=== PATIENT | male | born 1985 | race Caucasian/White ===

== ENCOUNTER 2016-02-21 11:06 | Emergency (ER) | payer OTHER ==
[2016-02-21 11:13] VITALS: BP 136/85
--- NOTE | 2016-02-21 11:17 | ER Document Report ---
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 Needs consult and has insomnia TRAVEL OUTSIDE OF THE [place] IN LAST 30 DAYS: No - HPI Onset: Other - 2014 Onset/Duration: Persistent Quality of pain: Achy, Other - numb and sore Pain Level: 2 Associated Symptoms: Other - insominia Exacerbated by: Movement - use Relieved by: Denies Similar symptoms previously: Yes Recently seen / treated by doctor: No - Related Data Smoking: Non-smoker Frequency of alcohol use: Social Drug Abuse: None Past Medical History Past Surgical History: Reports: Hx Cholecystectomy - Immunizations Hx Diphtheria, Pertussis, Tetanus Vaccination: Yes Physical Exam - Vital signs Vitals: Temp Pulse Resp BP Pulse Ox 97.8 F 90 16 136/85 H 99 02/21/16 11:12 02/21/16 11:12 02/21/16 11:12 02/21/16 11:12 02/21/16 11:12 Course - Vital Signs Vital signs: Temp Pulse Resp BP Pulse Ox 97.8 F 90 16 136/85 H 99 02/21/16 11:12 02/21/16 11:12 02/21/16 11:12 02/21/16 11:12 02/21/16 11:12
--- NOTE | 2016-02-21 11:59 | ER Document Report ---
HPI - HPI Patient complains to provider of: bilateral wrist pain, insomnia Onset: Other - Wrist pain since 2014, insomnia past week Onset/Duration: Persistent Quality of pain: Achy Pain Level: 3 Context: Patient reports previous history of carpal tunnel and suspects a flare up of the same today. 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 Associated Symptoms: Other - Insomnia, bilateral wrist pain Exacerbated by: Movement Relieved by: Denies Similar symptoms previously: Yes Recently seen / treated by doctor: No - ROS ROS below otherwise negative: Yes Notes: Patient complains of insomnia due to shift work Systems Reviewed and Negative: Yes All other systems reviewed and negative - CONSTITUTIONAL Constitutional: DENIES: Fever, Chills - NEURO Neurology: DENIES: Headache, Weakness - CARDIOVASCULAR Cardiovascular: DENIES: Chest pain - MUSCULOSKELETAL Musculoskeletal: REPORTS: Extremity pain - Bilateral wrist. 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 IN LAST 30 DAYS: No - HEENT HEENT: Atraumatic, Normocephalic - NECK Neck: Normal Inspection, Supple - RESPIRATORY Respiratory: No Respiratory Distress O2 Sat by Pulse Oximetry: 99 - CARDIOVASCULAR Cardiovascular: Regular Rate, Regular Rhythm Pulses: Normal: Radial - BACK Back: Normal Inspection - MUSCULOSKELETAL/EXTREMETIES Musculoskeletal/Extremeties: MAEW, Tender - Mild tenderness to bilateral wrist area, no edema, positive Tinel sign, No Edema - NEURO Level of Consciousness: Awake, Alert, Appropriate Motor/Sensory: No Motor Deficit, No Sensory Deficit - DERM Integumentary: Warm, Dry, No Rash Course - Re-evaluation Re-evalutation: 02/21/16 11:56 Patient without any suicidal or homicidal ideation. 02/21/16 19:05 Patient reports that he has his cockup wrist splints at home that he uses periodically - Vital Signs Vital signs: Temp Pulse Resp BP Pulse Ox 97.8 F 90 16 136/85 H 99 02/21/16 11:12 02/21/16 11:12 02/21/16 11:12 02/21/16 11:12 02/21/16 11:12 Discharge - Discharge Clinical Impression: Shift work sleep disorder, Hx of carpal tunnel syndrome Insomnia Qualifiers: Insomnia type: unspecified Qualified Code(s): G47.00 - Insomnia, unspecified Condition: Stable Disposition: HOME, SELF-CARE Instructions: Insomnia ([facility]), Carpal Tunnel Syndrome ([facility]) Additional Instructions: Return immediately for any new or worsening symptoms Followup with your primary care provider, call tomorrow to make a followup appointment Use your wrist splint that you have at home to help with your carpal tunnel syndrome Follow-up with orthopedic doctor to further manage your carpal tunnel syndrome Prescriptions: Hydroxyzine HCl [Atarax 25 mg Tablet] 2 tab PO QHS #15 tablet Naproxen [Naprosyn 250 Nmg Tablet] 1 tab PO BID #14 tablet Referrals: [facility] [Provider Group] - Follow up as needed [facility] [Provider Group] - Follow up as needed [facility] [Provider Group] - Follow up as needed
== END 2016-02-21 12:06 | disposition home or self-care (01) ==
LOC: ER 11:06
DX: G47.00 Insomnia, unspecified (principal); G47.8 Other sleep disorders; G56.03 Carpal tunnel syndrome, bilateral upper limbs
CPT/HCPCS: 99283

== ENCOUNTER 2016-09-09 15:04 | Day surgery (SDC) | payer BC ==
[~2016-09-09 15:04] MED LIST: EPINEPHRINE INJ 1 MG/10 ML DISP.SYRIN ONE; FLUMAZENIL INJ 0.5 MG/5 ML VIAL IV ONE; GLUCAGON,HUMAN RECOMB 1 MG INJ ONE; NALOXONE HCL INJ/PF 0.4 MG/1 ML SDV ONE
[2016-09-09] MEDS: MIDAZOLAM 2 MG/2 ML INJ ONE ×3 (15:40→16:03)
[2016-09-09] MEDS: FENTANYL CITRATE INJ/PF 100 MCG/2 ML AMPUL ONE ×2 (15:42→16:00)
--- NOTE | 2016-09-09 16:23 | Operative Report ---
Operative Report DATE OF SURGERY: 09/09/16 Operative Report: Pre-op diagnosis: Common bile duct stent in situ for 3 years with recurrent abdominal pain Post-op diagnosis: 1. Common bile duct stent status post removal 2. Common bile duct stones and large amount of sludge Surgery: ERCP with sphincterotomy and balloon stone and sludge extraction Medications: Versed 5mg Fentanyl 150mcg IV push Tissue removed: None Procedure: After informed consent obtained from patient, the throat was sprayed with Hurricane and conscious sedation was achieved. The ERCP endoscope was then inserted into the esophagus blindly and advanced into the stomach. The duodenum was entered and the ampulla was identified. An old plastic stent was identified and this was removed using the polypectomy snare. It does not appear patient had any previous sphincterotomy. Cholangiogram was obtained and this showed multiple filling defects in a slightly dilated biliary tree. A good sized sphincterotomy was then performed using the endocut mode. The catheter was removed over the guidewire before a 9-12 mm balloon catheter was inserted. The balloon was inflated to 12 mm in the proximal common bile duct and pulled down the duct. Large amount of sludge and a few stones were extracted. The duct was swept two more time. A balloon occlusion cholangiogram was normal. The pancreatic duct was intentionally not cannulated. Patient tolerated procedure well. Findings Common bile duct: Mildly dilated with multiple stones and large amount of sludge. An old stent was removed Intrahepatic ducts: Mildly dilated Pancreatic duct: Not cannulated Plan: Follow-up LFTs as outpatient OPERATION: .
--- NOTE | 2016-09-09 16:55 | RADIOLOGY REPORT (SQ) ---
EXAM DESCRIPTION: ENDO CATH/BILIARY DUCT COMPLETED DATE/TIME: 09/09/2016 4:40 pm REASON FOR STUDY: ERCP R94.5 ABNORMAL RESULTS OF LIVER FUNCTION STUDIES COMPARISON: None. FLUOROSCOPY TIME: 3.7 minutes. 6 images saved to PACS. TECHNIQUE: Intra-operative images acquired during surgical procedure to evaluate progress. NUMBER OF IMAGES: 6 images. LIMITATIONS: None. FINDINGS: Images acquired during ERCP with contrast filling of the biliary system. IMPRESSION: IMAGE(S) OBTAINED DURING PROCEDURE. COMMENT: Quality ID [id number]: Final reports for procedures using fluoroscopy that document radiation exp osure indices, or exposure time and number of fluorographic images (if radiation exposure indices are not available) Please consult full operative report of the attending physician for description of the procedure. TECHNICAL DOCUMENTATION: JOB ID: [id number] [employer]- All Rights Reserved
[2016-09-09 17:23] VITALS: BP 111/68
== END 2016-09-09 17:15 | disposition home or self-care (01) ==
LOC: END 15:04 → EDBD 15:45 → MERGE 15:45 → END 17:15
PROVIDERS: ATTEND Internal Medicine Gastroenterology
PROC: 0F798ZZ Dilation of Common Bile Duct, Via Natural or Artificial Opening Endoscopic (ICD-10-PCS; principal; 2016-09-09 15:45)
PROC: 0FC98ZZ Extirpation of Matter from Common Bile Duct, Via Natural or Artificial Opening Endoscopic (ICD-10-PCS; 2016-09-09 15:45)
PROC: 0FPB8DZ Removal of Intraluminal Device from Hepatobiliary Duct, Via Natural or Artificial Opening Endoscopic (ICD-10-PCS; 2016-09-09 15:45)
DX: K80.50 Calculus of bile duct without cholangitis or cholecystitis without obstruction (principal); K83.8 Other specified diseases of biliary tract; Z46.59 Encounter for fitting and adjustment of other gastrointestinal appliance and device
CPT/HCPCS: 43275; 43264; 43262; 74328; J2250; J3010; J0171; J1610; J2310; J3490

== ENCOUNTER → 2016-11-01 | Outpatient (CLI) | payer BC | LOC: OD 08:38 | PROVIDERS: ATTEND Physician Assistant | DX: R20.2 Paresthesia of skin (principal); G56.01 Carpal tunnel syndrome, right upper limb | CPT/HCPCS: 36415; 84443 ==

== ENCOUNTER 2017-05-21 09:53 | Emergency (ER) | payer BC ==
[2017-05-21 09:58] VITALS: BP 150/77
[2017-05-21] MEDS ORDERED: KETOROLAC TROMETHAMINE 60 MG/2 ML SDV IM ONE (10:45)
[2017-05-21] MEDS ORDERED: DIAZEPAM 5 MG TABLET PO ONE (10:45)
--- NOTE | 2017-05-21 12:07 | RADIOLOGY REPORT (SQ) ---
EXAM DESCRIPTION: CERV SP 3 VIEW OR LESS COMPLETED DATE/TIME: 05/21/2017 11:09 am REASON FOR STUDY: limited rom neck, pain COMPARISON: None. NUMBER OF VIEWS: Three views. TECHNIQUE: AP, lateral and odontoid radiographic images acquired of the cervical spine. LIMITATIONS: None. FINDINGS: MINERALIZATION: Osteopenic ALIGNMENT: Straightening of cervical lordosis likely due to muscle spasm. Normal alignment of the C5 through T2 anterior vertebral bodies on swimmer view. VERTEBRAE: Vertebral bodies of normal height. DISCS: Mild disc space loss of height at C4-5 and C5-6 HARDWARE: None in the spine. SOFT TISSUES: No masses or calcifications. Lung apices clear. OTHER: No other significant finding. IMPRESSION: Straightening of cervical lordosis likely due to muscle spasm. TECHNICAL DOCUMENTATION: JOB ID: [id number] [employer]- All Rights Reserved Reading location - IP/workstation name: [email or web address]
--- NOTE | 2017-05-21 12:22 | ER Document Report ---
ED Neck/Back Problem - General Chief Complaint: Stiff Neck Stated Complaint: BACK PAIN Time Seen by Provider: 05/21/17 10:32 Mode of Arrival: Ambulatory Information source: Patient Notes: Patient is a 32-year-old male who presents to the ER today for bilateral neck pain, worse on the right side, inability to turn his head completely without pain from side to side that started yesterday. Patient denies any injury. He does state that it radiates up the back of his head and he does have a history of migraines. Patient denies any fever, chills, cough, vomiting, diarrhea, blurred vision, numbness or tingling anywhere, weakness anywhere. TRAVEL OUTSIDE OF THE [place] IN LAST 30 DAYS: No - Related Data Allergies/Adverse Reactions: No Known Allergies Allergy (Verified 05/21/17 09:54) Past Medical History - General Information source: Patient - Social History Smoking Status: Never Smoker Chew tobacco use (# tins/day): No Frequency of alcohol use: Occasional Drug Abuse: None Family History: Reviewed & Not Pertinent Patient has suicidal ideation: No Patient has homicidal ideation: No - Past Medical History Cardiac Medical History: Denies: Hx Coronary Artery Disease, Hx Heart Attack, Hx Hypertension Pulmonary Medical History: Denies: Hx Asthma, Hx Bronchitis, Hx COPD, Hx Pneumonia Neurological Medical History: Reports: Hx Migraine. Denies: Hx Cerebrovascular Accident, Hx Seizures Renal/ Medical History: Denies: Hx Peritoneal Dialysis Musculoskeltal Medical History: Denies Hx Arthritis Past Surgical History: Reports: Hx Cholecystectomy - Immunizations Hx Diphtheria, Pertussis, Tetanus Vaccination: Yes Review of Systems - Review of Systems Constitutional: No symptoms reported EENT: No symptoms reported Cardiovascular: No symptoms reported Respiratory: No symptoms reported Gastrointestinal: No symptoms reported Genitourinary: No symptoms reported Male Genitourinary: No symptoms reported Musculoskeletal: See HPI Skin: No symptoms reported Hematologic/Lymphatic: No symptoms reported Neurological/Psychological: See HPI Physical Exam - Vital signs Vitals: Temp Pulse Resp BP Pulse Ox 99.7 F 95 15 150/77 H 99 05/21/17 09:57 05/21/17 09:57 05/21/17 09:57 05/21/17 09:57 05/21/17 09:57 - Notes Notes: PHYSICAL EXAMINATION: GENERAL: Well-appearing and in no acute distress. HEAD: Atraumatic, normocephalic. EYES: Pupils equal round and reactive to light, extraocular movements intact, sclera anicteric, conjunctiva are normal. ENT: ear canals without erythema or foreign body, TMs pearly vanessa with good bony landmarks, nares patent, oropharynx clear without exudates. Moist mucous membranes. NECK: limited range of motion with rotation to the right and left, normal chin to chest and extension, supple without lymphadenopathy LUNGS: CTAB and equal. No wheezes rales or rhonchi. HEART: Regular rate and rhythm without murmurs ABDOMEN: Soft, no tenderness. No guarding, no rebound BACK: no vertebral tenderness, normal ROM GI/: no CVA tenderness EXTREMITIES: Normal range of motion, no pitting edema. No cyanosis. NEUROLOGICAL: Cranial nerves grossly intact. Normal sensory/motor exams. Good and equal strength bilaterally, Kernig and Brudzinski's signs negative, Romberg' s test normal, normal heel to kumar testing PSYCH: Normal mood, normal affect. SKIN: Warm, Dry, normal turgor, no rashes or lesions noted Course - Re-evaluation Re-evalutation: 05/21/17 12:20 X-ray reports straightening of the cervical lordosis consistent with muscle spasm. Patient feels some better after Valium and Toradol given here. Will send patient home with muscle relaxer. - Vital Signs Vital signs: Temp Pulse Resp BP Pulse Ox 99.7 F 95 15 150/77 H 99 05/21/17 09:57 05/21/17 09:57 05/21/17 09:57 05/21/17 09:57 05/21/17 09:57 Discharge - Discharge Clinical Impression: Muscle spasms of neck Condition: Stable Disposition: HOME, SELF-CARE Instructions: Muscle Relaxers ([facility]) Additional Instructions: Return immediately for any new or worsening symptoms. Follow up with primary care provider, call tomorrow to make followup appointment. Prescriptions: Cyclobenzaprine HCl [Flexeril 10 mg Tablet] 10 mg PO TIDP PRN #15 tab PRN Reason: Forms: Return to Work
== END 2017-05-21 12:36 | disposition home or self-care (01) ==
LOC: ER 09:53
DX: M62.838 Other muscle spasm (principal); M54.2 Cervicalgia; Z86.69 Personal history of other diseases of the nervous system and sense organs
CPT/HCPCS: 99283; 96372; 72040; J1885